=== PATIENT | female | born 1990 | race Two or more races ===

== ENCOUNTER 2016-11-10 16:27 | Emergency (ER) | payer SELFPAY ==
[~2016-11-10] VITALS: Ht 165.1 cm; Wt 62.6 kg
[2016-11-10] MEDS ORDERED: ROBAXIN-750750 MG PO (17:07)
[2016-11-10] MEDS ORDERED: IBUPROFEN600 MG ORAL (17:07)
[2016-11-10] MEDS ORDERED: Methocarbamol 750mg tab ORAL ONE (17:15)
[2016-11-10 17:21] VITALS: BP 119/75
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
== END 2016-11-10 17:23 | disposition home or self-care (01) ==
LOC: EMR 17:08
DX: R25.2 Cramp and spasm (principal); Z91.018 Allergy to other foods
CPT/HCPCS: 99284